=== PATIENT | male | born 1995 | race African-American/Black ===

== ENCOUNTER → 2017-12-03 | Outpatient (CLI) | payer OTHER | END | disposition home or self-care (01) | LOC: MRI 09:35 | DX: S42.292A Other displaced fracture of upper end of left humerus, initial encounter for closed fracture (principal); X58.XXXA Exposure to other specified factors, initial encounter; Y93.89 Activity, other specified; Y92.89 Other specified places as the place of occurrence of the external cause; Y99.8 Other external cause status | CPT/HCPCS: 73221 ==

== ENCOUNTER 2018-01-27 08:54 | Day surgery (SDC) | payer OTHER ==
[~2018-01-27 08:54] MED LIST: LIDOCAINE 1% PF 2 ML VIAL. ID; MORPHINE SULFATE 2 MG/ML DISP.SYRIN. IV; ONDANSETRON PF 4 MG/2 ML VIAL. IV; PROCHLORPERAZINE 10 MG/2 ML VIAL. IV; fentaNYL PF VIAL 100 MCG/2 ML VIAL IV
[2018-01-27] MEDS ORDERED: DEXAMETHASONE SOD PHOS 20 MG/5 ML VIAL. (09:02)
[2018-01-27] MEDS ORDERED: fentaNYL PF VIAL 100 MCG/2 ML VIAL (09:02)
[2018-01-27] MEDS ORDERED: LIDOCAINE 2% PF Vial for OR 5 ML VIAL. (09:02)
[2018-01-27] MEDS ORDERED: PROPOFOL 20 ML IV (09:02)
[2018-01-27] MEDS ORDERED: ROCURONIUM 50 MG/5 ML VIAL. (09:02)
[2018-01-27] MEDS ORDERED: ONDANSETRON PF 4 MG/2 ML VIAL. (09:02)
[2018-01-27] MEDS ORDERED: FAMOTIDINE 20 MG/2 ML VIAL (09:02)
[2018-01-27] MEDS: IV RINGERS,LACTATED 1000ML 1,000 ML IV (09:24)
[2018-01-27] MEDS ORDERED: MIDAZOLAM HCL/PF 2 MG/2 ML VIAL. (09:43)
[2018-01-27] MEDS ORDERED: ROPIVacaine 0.5% PF 30 ML VIAL. (09:44)
[2018-01-27] MEDS: EPINEPHrine VIAL 30 MG/30 ML VIAL (10:41)
[2018-01-27] MEDS ORDERED: KETOROLAC 30 MG/ML INJ FOR OR. INJ (11:13)
[2018-01-27] MEDS ORDERED: SEVOFLURANE > 120 MINUTES. IH (11:13)
[2018-01-27] MEDS ORDERED: NEOSTIGMINE METHYLSULFATE 5 MG/5 ML SYRINGE. (11:13)
[2018-01-27] MEDS ORDERED: GLYCOPYRROLATE 1 MG/5 ML VIAL. (11:13)
[2018-01-27] MEDS: oxyCODONE/APAP 5/325 1 TAB TABLET PO (12:39)
== END 2018-01-27 13:42 | disposition home or self-care (01) ==
LOC: SURG 08:54
DX: S43.492A Other sprain of left shoulder joint, initial encounter (principal); K08.409 Partial loss of teeth, unspecified cause, unspecified class; Z82.49 Family history of ischemic heart disease and other diseases of the circulatory system; Z79.899 Other long term (current) drug therapy; Z91.018 Allergy to other foods; Z72.89 Other problems related to lifestyle; X58.XXXA Exposure to other specified factors, initial encounter; Y93.89 Activity, other specified; Y92.89 Other specified places as the place of occurrence of the external cause; Y99.8 Other external cause status
CPT/HCPCS: 29806; A7015; C1713; J0171; J0690; J0780; J1100; J1885; J2001; J2250; J2405; J2704; J2710; J2795; J3010; J3490; J7120; S0028